=== PATIENT | female | born 1985 | race Caucasian/White ===

== ENCOUNTER → 2018-11-21 11:51 | Outpatient (CLI) | payer BC, SELFPAY ==
[2016-08-19 05:35] VITALS: BMI 29.0
[2018-11-26 14:49] LABS: HPV Reflexed? NOT INDICATED
== END ==
PROVIDERS: Referring Provider Obstetrics & Gynecology; Visit Provider Obstetrics & Gynecology
DX: Z12.4 Encounter for screening for malignant neoplasm of cervix (principal)
CPT/HCPCS: 87624; 88175; G0145

== ENCOUNTER → 2020-12-29 | Outpatient (CLI) | payer BC, SELFPAY ==
[2016-08-19 05:35] VITALS: BMI 29.0
[2021-01-02 15:17] LABS: HPV Reflexed? NOT INDICATED
== END | disposition home or self-care (01) ==
LOC: LABSPEC 12-30 09:58
PROVIDERS: Visit Provider Obstetrics & Gynecology
DX: Z12.4 Encounter for screening for malignant neoplasm of cervix (principal)
CPT/HCPCS: 88175; G0145

== ENCOUNTER → 2022-10-05 | Outpatient (CLI) | payer BC, SELFPAY ==
[2022-10-05 16:32] LABS: Absolute Lymphocyte Count 1.72 X10^3/uL (0.83-4.51); Absolute Neutrophil Count 8.4 X10^3/uL (2.0-7.7); Basophil# 0.03 X10^3/uL; Basophil% 0.3 % (0-1); Eosinophils% 0.9 % (0-5); Hematocrit 38.2 % (37-47); Hemoglobin 12.7 g/dL (12.0-15.0); Lymphocyte # 1.72 X10^3/ul (0.83-4.51); Lymphocyte % 15.8 % (19-41); Mean Corp Hgb Conc 33.2 g/dL (32-36); Mean Corpuscular Hgb 29.7 pg (27.0-32.0); Mean Corpuscular Volume 89.3 fL (81-99); Mean Platelet Vol. 9.7 fl (6.2-12.0); Monocyte# 0.65 X10^3/uL; NRBC Flagged by Analyzer 0 % (0-5); Neutrophil # 8.36 X10^3/uL (2.7-7.7); Neutrophil % 76.6 % (47-70); Platelet Count 325 K/mm3 (150-450); RBC Distribution Width CV 13.8 % (11.6-14.6); RBC Distribution Width SD 45.1 fl (35.1-43.9); Red Blood Count 4.28 M/mm3 (4.2-5.4); White Blood Count 10.9 K/mm3 (4.4-11.0)
[2022-10-05 16:43] LABS: HIV - WCH Non-Reactive (Nonreactive); Hepatitis B Surface Antigen Non-Reactive (Nonreactive); Hepatitis C Antibody Non-Reactive (Nonreactive); Rubella IgG Reactive (Nonreactive); Syphilis Antibodies Non-reactive
[2022-10-07 08:29] LABS: V-Zoster IgG (Immunity) 2025 index (Immune >165)
== END | disposition home or self-care (01) ==
LOC: WOBLAB 14:28
PROVIDERS: Visit Provider Obstetrics & Gynecology
DX: Z34.82 Encounter for supervision of other normal pregnancy, second trimester (principal)
CPT/HCPCS: 36415; 85025; 86703; 86762; 86780; 86787; 86803; 87077; 87086; 87088; 87186; 87340

== ENCOUNTER → 2023-01-04 | Outpatient (CLI) | payer BC, SELFPAY ==
[2023-01-04 14:45] LABS: Hematocrit 39.4 % (37-47); Hemoglobin 12.7 g/dL (12.0-15.0); Mean Corp Hgb Conc 32.2 g/dL (32-36); Mean Corpuscular Hgb 30.3 pg (27.0-32.0); Mean Platelet Vol. 9.8 fl (6.2-12.0); Platelet Count 291 K/mm3 (150-450); RBC Distribution Width CV 13.8 % (11.6-14.6); RBC Distribution Width SD 47.4 fl (35.1-43.9); Red Blood Count 4.19 M/mm3 (4.2-5.4)
[2023-01-04 14:52] LABS: Glucose Challenge Gest 1H 50g 143 mg/dL (70-140)
[2023-01-04 15:16] LABS: Syphilis Antibodies Non-reactive
== END | disposition home or self-care (01) ==
LOC: WOBLAB 13:21
PROVIDERS: Visit Provider Obstetrics & Gynecology
DX: Z34.82 Encounter for supervision of other normal pregnancy, second trimester (principal)
CPT/HCPCS: 36415; 82950; 85027; 86780

== ENCOUNTER → 2023-01-11 | Outpatient (CLI) | payer BC, SELFPAY ==
[2023-01-11 09:42] LABS: Glucose GTT-Gestation. Fasting 83 mg/dL (<105)
[2023-01-11 10:54] LABS: Glucose GTT-Gestational 1 Hr 139 mg/dL (<190)
[2023-01-11 12:20] LABS: Glucose GTT-Gestational 2 Hr 106 mg/dL (<165)
[2023-01-11 14:24] LABS: Glucose GTT-Gestational 3 Hr 84 L (<145)
== END | disposition home or self-care (01) ==
LOC: WOBLAB 08:57
PROVIDERS: Visit Provider Obstetrics & Gynecology
DX: O24.912 Unspecified diabetes mellitus in pregnancy, second trimester (principal); Z3A.00 Weeks of gestation of pregnancy not specified
CPT/HCPCS: 36415; 82951; 82952

== ENCOUNTER 2023-04-04 02:50 | Inpatient (IN) | payer BC, SELFPAY ==
[2023-04-04] VITALS (32 sets, daily range): BP systolic 90–129; BP diastolic 33–74; PULSE 54–80; RESP 14–16; TEMP 36.3–37; O2SAT 81–100; BMI 27.7
[2023-04-04] MEDS: Lactated Ringers 1,000 ML 200 ML IV (03:10)
[2023-04-04 03:22] LABS: Basophil# 0.05 X10^3/uL; Basophil% 0.5 % (0-1); Eosinophil# 0.14 X10^3/uL; Eosinophils% 1.4 % (0-5); Hematocrit 41.6 % (37-47); Hemoglobin 13.8 g/dL (12.0-15.0); Lymphocyte % 21.3 % (19-41); Mean Corp Hgb Conc 33.2 g/dL (32-36); Mean Corpuscular Hgb 29.8 pg (27.0-32.0); Mean Corpuscular Volume 89.8 fL (81-99); Mean Platelet Vol. 10.7 fl (6.2-12.0); Monocyte# 0.88 X10^3/uL; Monocyte% 8.5 % (0-10); NRBC Flagged by Analyzer 0 % (0-5); Neutrophil # 7.02 X10^3/uL (2.7-7.7); Neutrophil % 67.9 % (47-70); Platelet Count 263 K/mm3 (150-450); RBC Distribution Width CV 13.2 % (11.6-14.6); RBC Distribution Width SD 43.4 fl (35.1-43.9); Red Blood Count 4.63 M/mm3 (4.2-5.4); White Blood Count 10.3 K/mm3 (4.4-11.0)
[2023-04-04 04:03] LABS: Syphilis Antibodies Non-reactive
[2023-04-04] MEDS: Sodium Citrate/Citric Acid 30 ML UDC PO (04:15)
[2023-04-04] MEDS: Acetaminophen 500 MG Tablet PO (04:15)
[2023-04-04] MEDS: Cefazolin 2 GM in 0.9% Normal Saline 100 ML IV (04:26)
--- NOTE | 2023-04-04 05:37 | PCM.HP.OB ---
HPI - General General Date of Admission: 04/04/23 Date of Service: 04/04/23 Chief Complaint: SROM, labor HPI Narrative JERAD LARSEN, is a 37 F who presents at 39w5d with SROM for clear fluid and regular, painful ctx's. No vb. Good FM. PFSH PFSH Medical History (Updated 04/04/23 @ 05:[address] Alicia Silva, DO) depression Vaginal after Home Medications prenat.vits,kathy,[id number] ( Vitamin tablet) 1 ea PO DAILY PREG 08/19/16 [History Last Taken 08/18/16 08:00 1] Ibuprofen [Motrin] 800 mg PO TID PRN PRN Pain #40 tabs 08/20/16 [Rx Last Taken Unknown] docusate sodium 100 mg capsule (DOK) 100 mg PO BID PRN PRN Constipation ##60 08/20/16 [Rx Last Taken Unknown] Allergy/AdvReac Type Severity Reaction Status Date / Time latex Allergy Itching Verified 04/04/23 02:48 adhesive tape AdvReac Itching Verified 04/04/23 02:48 grass pollen AdvReac Itching Verified 04/04/23 02:48 Surgical History (Updated 04/04/23 @ 03:07 by Tabitha Salinas) Previous section Social History Smoking Status: Never smoker History Elective abortions Hx Para 1 Spontaneous abortions Hx # Term Pregnancies Ectopic pregnancies Hx # Pregnancies Multiple births # of living children NST FHR Rate Baby A Baseline: 120 Variability:: Moderate Accelerations:: 15 x 15 Decelerations:: None NST Reactive:: Yes FHR Category:: Category I Uterine Activity:: regular ctx's Vital Signs Vital Signs Vital Signs: 04/04/23 02:37 04/04/23 02:37 04/04/23 02:38 Temperature Temperature Source Pulse Rate 71 Respiratory Rate Blood Pressure 129/70 H Blood Pressure Mean BP Systolic 129 BP Diastolic 70 Blood Pressure Source Blood Pressure Position Blood Pressure Location Pulse Ox 98 Oxygen Delivery Method 04/04/23 02:38 04/04/23 02:38 04/04/23 02:38 Temperature 98.5 F Temperature Source Temporal Pulse Rate 77 Respiratory Rate Blood Pressure Blood Pressure Mean BP Systolic BP Diastolic Blood Pressure Source Blood Pressure Position Blood Pressure Location Pulse Ox Oxygen Delivery Method 04/04/23 03:26 04/04/23 03:26 04/04/23 03:31 Temperature Temperature Source Pulse Rate 76 72 Respiratory Rate Blood Pressure Blood Pressure Mean BP Systolic BP Diastolic Blood Pressure Source Blood Pressure Position Blood Pressure Location Pulse Ox 98 Oxygen Delivery Method 04/04/23 03:31 04/04/23 03:36 04/04/23 03:36 Temperature Temperature Source Pulse Rate 78 Respiratory Rate Blood Pressure Blood Pressure Mean BP Systolic BP Diastolic Blood Pressure Source Blood Pressure Position Blood Pressure Location Pulse Ox 99 100 Oxygen Delivery Method 04/04/23 03:41 04/04/23 03:41 04/04/23 03:46 Temperature Temperature Source Pulse Rate 80 77 Respiratory Rate Blood Pressure Blood Pressure Mean BP Systolic BP Diastolic Blood Pressure Source Blood Pressure Position Blood Pressure Location Pulse Ox 100 Oxygen Delivery Method 04/04/23 03:46 04/04/23 03:51 04/04/23 03:51 Temperature Temperature Source Pulse Rate 80 Respiratory Rate Blood Pressure Blood Pressure Mean BP Systolic BP Diastolic Blood Pressure Source Blood Pressure Position Blood Pressure Location Pulse Ox 99 98 Oxygen Delivery Method 04/04/23 03:55 04/04/23 03:55 04/04/23 03:56 Temperature Temperature Source Pulse Rate 69 62 Respiratory Rate Blood Pressure Blood Pressure Mean BP Systolic BP Diastolic Blood Pressure Source Blood Pressure Position Blood Pressure Location Pulse Ox 81 Oxygen Delivery Method 04/04/23 03:56 04/04/23 04:00 04/04/23 04:00 Temperature Temperature Source Pulse Rate 80 Respiratory Rate Blood Pressure Blood Pressure Mean BP Systolic BP Diastolic Blood Pressure Source Blood Pressure Position Blood Pressure Location Pulse Ox 92 93 Oxygen Delivery Method 04/04/23 04:01 04/04/23 04:01 04/04/23 04:06 Temperature Temperature Source Pulse Rate 66 73 Respiratory Rate Blood Pressure Blood Pressure Mean BP Systolic BP Diastolic Blood Pressure Source Blood Pressure Position Blood Pressure Location Pulse Ox 93 Oxygen Delivery Method 04/04/23 04:06 04/04/23 04:08 04/04/23 04:06 Temperature 98.6 F Temperature Source Temporal Pulse Rate 74 Respiratory Rate 15 Blood Pressure 129/70 H Blood Pressure Mean 89 BP Systolic BP Diastolic Blood Pressure Source Monitor Blood Pressure Position Semi-Fowlers Blood Pressure Location Left Arm Pulse Ox 83 83 99 Oxygen Delivery Method Room Air Weight Weight: 188 lb Body Mass Index (BMI) 27.7 Physical Exam Const alert and no apparent distress Constitutional Narrative: Uncomfortable with ctx's Resp normal respiratory effort GI soft to palpation and non-tender Narrative: Cvx 90/0, vertex, grossly ruptured Labs Labs Labs: Blood Type A POSITIVE Antibody Screen NEGATIVE Hct 41.6 % (37-47) Hgb 13.8 g/dL (12.0-15.0) Syphilis Total Ab Non-reactive VZV IgG Antibody 2025 index (Immune >165) Rubella IgG Antibody Reactive (Nonreactive) Hep Bs Antigen Non-Reactive (Nonreactive) HIV 1&2 Antibody Non-Reactive (Nonreactive) Glucose 1 Hr 50 gm 143 mg/dL (70-140) H Group B Strep DNA POSITIVE (Negative) H Rhogam given: No Assessment & Plan (1) 39 weeks gestation of : PLAN: Grossly ruptured and in labor. Discussed risks, benefits, alternatives to a TOLAC versus a repeat section. Discussed limitations with a third trimester growth ultrasound in the . Gave patient and her significant other time to consider and discuss MOD. The patient requested a repeat section and declined TOLAC. Discussed risk, benefits, alternatives to section and consent obtained. Ancef and azithromycin ordered preoperatively. Routine preoperative care. (2) Group beta Strep positive: (3) SROM (spontaneous rupture of membranes): (4) Uterine contractions: (5) AMA (advanced maternal age) multigravida 35+: (6) anomaly: PLAN: Left sided hydroureter Plan: Routine Please start start amoxicillin prophylaxis in nursery RBUS the first 2-3 weeks of life with urology consult as well. Patient May call [phone] to schedule RBUS and consult with Peds. Urology
[2023-04-04] MEDS: Oxytocin 15 Units/NS 250ml 15 UNITS/250 ML IV.SOLN 83 UNITS IV (05:45)
--- NOTE | 2023-04-04 05:45 | PCM.OPRPT ---
Problems Associated Problem List Diagnoses (1) anomaly: (2) AMA (advanced maternal age) multigravida 35+: (3) Uterine contractions: (4) SROM (spontaneous rupture of membranes): (5) delivery delivered: (6) 39 weeks gestation of : (7) Group beta Strep positive: Report of Operation Date of Procedure: 04/04/23 Pre-Operative Diagnosis: 39 week gestation, single IUP, history of section, SROM, labor, AMA Post-Operative Diagnosis: As above Surgery/Procedure Performed:: RLTCS via pfannenstiel incision Description of Surgical Findings:: VMI in cephalic presentation weighing 9 lb 6 oz. Apgars 8, 9. Normal appearing placenta with 3 VC. Normal appearing uterus and bilateral adnexa. Fascia adhered to rectus. Peritoneum adhered anterior uterus. Minimal bladder adhesions. Surgeon: Alicia Silva practical nursing faculty: Viridiana ACOSTA Type of Anesthesia: Spinal Special Medications: None Specimen's removed: Placenta Drains: [place] Estimated Blood Loss (mL): 750 Fluids Replaced: 1500 mL Description of Procedure: Patient was taken to the operating room where spinal anesthesia was found to be adequate. She was prepped and draped in dorsal supine position with a leftward tilt. A Pfannenstiel skin incision was made with a scalpel and this was carried down to the underlying layer of fascia. The fascia was incised in the midline. The fascia was extended laterally using Atkinson scissors. The fascia was dissected off the rectus muscles minimally in a cephalad direction. The rectus muscles were already in the midline. The peritoneum was entered with a combination of sharp and blunt dissection with good visualization of the bladder. The peritoneal incision was extended bluntly with lateral traction. A bladder blade was inserted. A low transverse incision was made on the uterus with a scalpel. The hysterotomy was extended using cephalad and caudad traction. Clear fluid was noted. The head of the infant was flexed, elevated and delivered through the hysterotomy followed by the shoulders and the body without any force or delay. A vigorous viable male was delivered atraumatically. The cord was clamped and cut after slight delay and the was handed off to the nursing staff. The placenta was removed and noted to be normal-appearing. The uterus was cleared of all clot debris. Uterus was exteriorized. The hysterotomy was closed with 1-0 Vicryl in a running locked fashion. A second imbricating layer of 1-0 Vicryl was performed. Several additional [id number]-od-fmoln sutures were performed for hemostasis. Bilateral adnexa were normal-appearing. The uterus was placed back into the abdomen. The uterine incision and lower uterine segment were hemostatic and Reyes was placed. The subfascial space was noted to be hemostatic. The fascia was closed with strata fix in a running fashion. Subcutaneous space was irrigated and made hemostatic with the Bovie cautery. The subcutaneous space was reapproximated using 3-0 Vicryl. The skin was closed with 4-0 Monocryl in a subcuticular fashion. A dressing was placed. Instrument, sharp, sponge counts were correct and the patient was taken to the recovery in stable condition. Stitch Wheeler Viridiana ACOSTA was present for the entire procedure and assisted with draping the patient, delivery of , and closure. Grafts/Implants Used: None Procedure Start Time: 04:25 Procedure Stop Time: 05:28 Complications None Admit VTE Documentation VTE Present on Admission: No VTE Mechan Device Prophylaxis: SCD's
[2023-04-04] MEDS: Ketorolac 30 MG/ML Syringe IV ×3 (06:26→19:47)
[2023-04-04] MEDS: Lactated Ringers 1,000 ML 999 ML IV (08:43)
--- NOTE | 2023-04-04 08:46 | NURSING ---
Dr. Gonzalez notified of lower BP. Will give 1L bolus
[2023-04-04] MEDS: Acetaminophen 500 MG Tablet 1000 MG PO ×3 (11:07→23:15)
[2023-04-04] MEDS: Lactated Ringers 1,000 ML 100 ML IV (11:14)
[2023-04-04] MEDS: 0.9% Saline Lock 10 ML Syringe IV (13:43)
[2023-04-05] MEDS: Ketorolac 30 MG/ML Syringe IV (01:38)
[2023-04-05 04:08] VITALS: BP 89/50; PULSE 63; RESP 16; TEMP 36.2; O2SAT 97
[2023-04-05] MEDS: Acetaminophen 500 MG Tablet 1000 MG PO ×3 (05:32→17:19)
[2023-04-05 06:30] LABS: Hematocrit 34.8 % (37-47); Hemoglobin 11.1 g/dL (12.0-15.0); Mean Corp Hgb Conc 31.9 g/dL (32-36); Mean Corpuscular Hgb 30.1 pg (27.0-32.0); Mean Corpuscular Volume 94.3 fL (81-99); Mean Platelet Vol. 10.2 fl (6.2-12.0); Platelet Count 200 K/mm3 (150-450); RBC Distribution Width CV 13.6 % (11.6-14.6); RBC Distribution Width SD 46.6 fl (35.1-43.9); Red Blood Count 3.69 M/mm3 (4.2-5.4); White Blood Count 10.9 K/mm3 (4.4-11.0)
[2023-04-05 08:10] VITALS: BP 101/59; PULSE 57; RESP 16; TEMP 36.6; O2SAT 97
[2023-04-05] MEDS: Ibuprofen 600 MG Tablet PO ×2 (08:13→13:31)
--- NOTE | 2023-04-05 08:55 | DS.PCM_ITS ---
Providers Date of Admission: 04/04/23 Date of Discharge: 04/05/23 Primary Care Physician: Dr. Eliazar Porter MD Reason For Visit: Diagnosis Discharge Diagnosis (1) anomaly: Status: Acute (2) AMA (advanced maternal age) multigravida 35+: Status: Acute Code(s): O09.529 - Supervision of elderly multigravida, unspecified trimester (3) Uterine contractions: Status: Acute Code(s): O47.9 - False labor, unspecified (4) SROM (spontaneous rupture of membranes): Status: Acute (5) delivery delivered: Status: Acute Code(s): O82 - Encounter for delivery without indication (6) 39 weeks gestation of : Status: Acute Code(s): Z3A.39 - 39 weeks gestation of (7) Group beta Strep positive: Status: Acute Code(s): B95.1 - Streptococcus, group B, as the cause of diseases classified elsewhere Medications at Discharge Home Medications prenat.vits,kathy,hhw-offl-gjokr ( Vitamin tablet) 1 ea PO DAILY PREG 08/19/16 ibuprofen 600 mg tablet 600 mg PO Q6H PRN Pain 30 days #60 TABLETS 04/05/23 Hospital Course Operations section Procedures None Summary of Care Provided Hospital Course: 37-year-old female with history of previous section was admitted in early labor. Repeat low transverse section was performed on the manager beauty of 04/04/2023. By day #1 she was ambulating, urinating tolerating regular diet without difficulty. Her pain was well controlled. She desires discharge home later today if okay with pediatrics. She is to follow-up in the office within 1 week and in 6 weeks or as needed. Physical Exam Const alert General Appearance: cooperative GI GI Narrative: soft, moderate distention, fundus firm, appropriately tender. Abdominal bandage clean dry and intact Weight / BMI Weight Weight: 85.275 kg Body Mass Index (BMI) 27.7 ABG / Lab / Microbiology Data 04/05/23 06:20 Laboratory: Laboratory Results - last 24 hr 04/05/23 06:20: WBC 10.9, RBC 3.69 L, Hgb 11.1 L, Hct 34.8 L, MCV 94.3 D, MCH 30.1, MCHC 31.9 L, RDW Std Deviation 46.6 H, RDW Coeff of Rajwinder 13.6, Plt Count 200, MPV 10.2 D/C Instructions Discharge Diet: No restrictions May resume sexual activity in: 4-6 weeks Lifting Restrictions: 20 pounds Additional Activity Instructions: Nothing in the vagina for 4-6 weeks. You may return to work/school in 6 weeks. Call your doctor if your incision/area has: Continuous Slow Oozing, Sudden Increased Bleeding, Increased Pain/ Swelling, Increased Redness and Foul Smelling Discharge Call your doctor if you observe: Fever of 101 or Higher and Using more than 1 pad per hour (for 2 hours) Suture Line Care: Avoid Pulling/Pushing and Avoid Pinching/Bending Cleanse incision/area with: Keep Dressing Clean & Dry Please Follow Up With: Kae Farrar MD When: Call the office at [phone] to schedule a 1 week and 6-week appointment for follow-up. Send a [employer] message or call if any questions or concerns in the interim. Meaningful Use Info Meaningful Use Diagnoses (Choose all that apply): None applicable Discharge Plan Admission Admit Date/Time: 04/04/23 02:50 Primary Reason for Your Visit: Repeat section Attending Provider: Alicia Silva Primary Care Provider: Eliazar Porter Discharge Orders/Prescriptions Prescriptions: New ibuprofen [ibuprofen] 600 mg tablet 600 mg PO Q6H PRN (Reason: Pain) 30 Days Qty: 60 1RF Continued Vitamin 1 EACH tablet 1 ea PO DAILY Discontinued docusate sodium [DOK] 100 MG capsule 100 mg PO BID PRN PRN (Reason: Constipation) Qty: 60 0RF Ibuprofen [Motrin] 800 MG tablet 800 mg PO TID PRN PRN (Reason: Pain) Qty: 40 0RF Referrals / Follow Up: Eliazar Porter MD [Primary Care Provider] - Disposition Disposition (needs filled in before D/C Order can be placed): Home, Self Care
[2023-04-05] MEDS: Senna/Docusate Sodium 1 Tablet PO (10:55)
--- NOTE | 2023-04-05 11:17 | CASEMGMT ---
Social Work Assessment Labor and Delivery Unit Patient Address:[address] [place] [address] [address], [place] [address] Phone number: [phone] Date of Referral: 04/05/23 Time of Referral:? 829 Referred By: Nursing staff Date of Intervention: ??04/05/23 Time of Intervention:? 1029 Reason for Referral:? Sw informed of social work consult by bedside nursing staff due to maternal history of depression. Sw completed chart review. Sw notes prior social work involvement with mother of baby (MOB- Carlita) first child due to concerns of maternal bonding. Sw presented to bedside and introduced self to MOB and father of baby (FOB- Robert). Sw explained reason for social work involvement and completed psychosocial assessment. Sw provided MOB with [place] Depression Screen to complete and asked FOB to step out momentarily. FOB did so willingly and respectfully. History obtained from: medical records, MOB and FOB. Household composition: Currently residing in the family home is FOB, MOB, their older daughter (Ruby, : 08/20/16), and now baby boy. MOB reports that home situation is safe and housing is adequate. Patient's parent/guardian status:?MOB and FOB have been together for 16 years. MOB states that they were introduced to each other by mutual friends, one of them being HADLEY's brother in law. MOB denies any concerns of domestic violence or intimate partner violence. Medical History: OSVALDO is 3, para 1- now 2. MOB with routine care with [facility] during . MOB delivered baby via repeat on 04/04/23. Baby boy, named Melvin Miller, was born weighing 9lb 6oz and his apgars were 8 and 9 at one and five minutes of life respectfully. MOB states that she is breast feeding and that is going well. Baby will follow with [facility], Dr. Porter. Educational Status:?Both parents graduated from high school and also obtained college degrees. FOB obtained his Bachelors of Business and MOB obtained her Bachelors in Business. Parents deny any issues with reading, writing or comprehension. Financial Status: Both parents are gainfully employed outside of the home. FOB works as a [employer]/ plastic worker. 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 Supplies: Parents report they have obtained everything that baby needs, including: car seat, safe sleep space, clothes, diapers, wipes and breast pump. Childcare/Caregiver(s):? OSVALDO states that because she only works hr business partner consultant she will be the primary child abuse worker provider for baby. MOB states that if they need assistance with childcare they have a lot of family members who are able to assist. Transportation:??Both parents have their drivers license and reliable transporation. No transporation barriers at this time. Programs/Agencies Involved: ??Parents deny any linkage to community agencies at this time. Sw provided list of resources available to them for [facility]. Children Services/Legal Issues:?No former involvement with Children Services, no issues or concerns that warrant a referral at this time. Parents deny legal involvement. Behavioral Health Issues: ??Mental Health History:???HADLEY denies mental health history. OSVALDO disclosed that she struggled with depression following the of her first baby. OSVALDO stated that it was a big change to her and she was not used to having someone be totally dependent on her. OSVALDO stated that her first baby cried for the first couple of months and that was also very challenging. OSVALDO states that she was also very sick following her which made it difficult for her to heal and care for a . OSVALDO completed the [place] Depression Scale. Her score was a 0. Sw encouraged OSVALDO to reach out to family and friends or her OBGYN/ PCP if she feels like she may be struggling with the baby blues or depression. Substance Use History:??OSVALDO denies substance use prior to and during pegnancy. Family History:?OSVALDO reports that she had a great aunt that from suicide. HADLEY denies mental health history for his family.?? Drug Screens: ?NO urine screens observed in chart review. Family/Social Stressors:? OSVALDO denies stressors at this time. Support Systems: MOB states that their family has a lot of natural supports found in family and friends. Depression/Shaken Baby/Safe Sleeping: Sw educated parents on signs and symptoms of baby blues and depression. Sw provided literature for parents to review. Sw encouraged parents to have a conversation about ways that FOIvory can be supportive of MOB during this time. Sw educated parents on shaken baby prevention and ABCs of safe sleep. Parents expressed understanding. ? ASSESSMENT:? Parents were engaged during assessment. MOB appeared to be extremely happy and jovial. MOB stated that at baseline she tends to be more serious, but she is happy that baby is here and her delivery went much more better than the last. Parents were observed to provide caring hands on care to baby. Parents were understanding of signs and symptoms of baby blues and depression. Parents were receptive to sw involvement and support. PLAN:? MOB and baby to be discharged when medically ready. ?No other services requested or indicated. Salomon White, PARTY HOST/HOSTESS, MEDICAL PSYCHOTHERAPIST
[2023-04-05 14:15] VITALS: BP 109/50; PULSE 75; RESP 16; TEMP 36.7; O2SAT 94
== END 2023-04-05 17:55 | disposition home or self-care (01) | DRG 788 ==
LOC: WPOUT 02:52 → WP 02:52
PROVIDERS: Admitting Provider Obstetrics & Gynecology; PCP Family Medicine; Referring Provider Obstetrics & Gynecology; Visit Provider Obstetrics & Gynecology
DX: O34.211 Maternal care for low transverse scar from previous cesarean delivery (principal); O35.8XX0 Maternal care for other (suspected) fetal abnormality and damage, not applicable or unspecified; O42.92 Full-term premature rupture of membranes, unspecified as to length of time between rupture and onset of labor; O99.824 Streptococcus B carrier state complicating childbirth; Z37.0 Single live birth; Z3A.39 39 weeks gestation of pregnancy; Z87.59 Personal history of other complications of pregnancy, childbirth and the puerperium
CPT/HCPCS: 59025; 59050; 85025; 85027; 86780; 86850; 86900; 86901; 99221; J7120; A4216; G0378; J2405